=== PATIENT | female | born 1955 | race Caucasian/White ===

== ENCOUNTER → 2020-06-11 | Day surgery (SDC) | payer BC ==
[2020-06-08 16:37] LABS: Basophils # (auto) 0 10 ^3/uL (0-0.2); Basophils % (auto) 0.5 % (0.0-2.0); Eosinophils # (auto) 0.1 10 ^3/uL (0-0.8); Eosinophils % (auto) 1.7 % (0.0-7.0); Hematocrit 41.7 % (36.0-46.0); Hemoglobin 14.3 g/dL (12.2-16.2); Lymphocytes # (auto) 1.5 10 ^3/uL (0.4-5.4); Lymphocytes % (auto) 30.1 % (10.0-50.0); Mean Corpuscular Hemoglobin 31.1 pg (28.0-32.0); Mean Corpuscular Hgb Conc. 34.3 g/dL (32.0-36.0); Mean Corpuscular Volume 90.8 fL (80.0-100.0); Monocytes # (auto) 0.4 10 ^3/uL (0-1.3); Monocytes % (auto) 8.4 % (0.0-12.0); Neutrophils % (auto) 59.3 % (37.0-80.0); Nucleated Red Blood Cells % 0.1 %; Platelet Count (auto) 197 10^3/uL (140-450); Red Blood Cells 4.59 10^6/uL (4.0-5.20); Red Cell Distribution Width 14.5 % (11.8-14.3); White Blood Cell 5.1 10^3/uL (4.4-10.8)
[2020-06-08 16:42] LABS: Urine Bacteria FEW /hpf (None Seen); Urine Blood Negative /uL (Negative); Urine WBC 1 /hpf (0 - 5)
[2020-06-08 16:52] LABS: INR 1.03 (0.9-1.15); Partial Thromboplastin Time 26.4 sec (23.0-31.2)
[2020-06-08 17:48] LABS: Albumin 3.8 g/dL (3.4-5.0); BUN/Creatinine Ratio 16.7; Calcium 8.5 mg/dL (8.5-10.1)
[2020-06-08 18:05] LABS: Bilirubin, Total 0.5 mg/dL (0.2-1.0); Total Protein 7.4 g/dL (6.4-8.2)
[~2020-06-11] VITALS: Ht 172.7 cm; Wt 90.7 kg
[~2020-06-11] MED LIST: ASPI-543 PO; BUPIVACAINE 0.5% MPF INJ 30ML SDV IJ ONE; CLINDAMYCIN 600MG IV 50 ML IV ONE; DEXT15CA16 PO; DIPH50CA PO; HYDR-4069 PO; LIDOCAINE 2% (LOCAL ANESTH.) PF 5ml SDV ONE; LIDOCAINE W/ EPINEPHRINE 1% 20ML VIAL ONE; MIDAZOLAM HCL 1MG/1ML-2 ML VIAL ONE; MORPHINE SULF(PF) 0.5MG/ML 10ML VIAL ONE; ONDANSETRON HCL 4 MG/2 ML VIAL IV ONE; PROPOFOL 10 MG/ML 20 ML IV ONE; SENN1TAB14 PO; TIZA4CAP PO; VANCOMYCIN HCL 1000 MG VL ONE; fentaNYL CITRATE 100 MCG/2 ML VL ONE
[2020-06-11 12:15] VITALS: BP 126/66
== END | disposition home or self-care (01) ==
LOC: SUR 07:18
PROVIDERS: ATTEND Anesthesiology Pain Medicine
DX: M51.36 Other intervertebral disc degeneration, lumbar region (principal); M19.90 Unspecified osteoarthritis, unspecified site; F90.8 Attention-deficit hyperactivity disorder, other type; I10 Essential (primary) hypertension; E66.9 Obesity, unspecified; M79.7 Fibromyalgia; G89.29 Other chronic pain; Z20.822 Contact with and (suspected) exposure to COVID-19; Z88.8 Allergy status to other drugs, medicaments and biological substances; Z98.890 Other specified postprocedural states; Z79.899 Other long term (current) drug therapy; Z87.891 Personal history of nicotine dependence; Z68.30 Body mass index [BMI] 30.0-30.9, adult
CPT/HCPCS: 36415; 62362; 62370; 80053; 81001; 85025; 85610; 85730; 87086; 88300; C1772; J2001; J2250; J2270; J2405; J2704; J3010; J3370; J3490; U0003